=== PATIENT | male | born 1990 | race Caucasian/White ===

== ENCOUNTER 2023-01-01 11:16 | Outpatient (CLI) | payer MEDICAID, SELFPAY ==
--- NOTE | 2023-01-01 11:31 | XR_ITS ---
WS: [id number] EXAMINATION: XR chest 2V* [id number] REASON FOR EXAM: COUGH, TOBACCO DEPENDENCE, WEIGHT LOSS, ABNORMAL COMPARISON: None available. ORDER DATE: 01/01/2023 11:47 AM FINDINGS: The lungs are clear of infiltrate. The cardiac and mediastinal outlines are unremarkable. There ar e no significant pleural effusions . No significant abnormalities are noted in the spine or remainder of the bony thorax. XR/XR chest 2V* [id number] IMPRESSION: NO ACUTE PULMONARY CHANGE.
== END 2023-01-01 11:17 | disposition home or self-care (01) ==
PROVIDERS: PCP Nurse Practitioner Family; Visit Provider Nurse Practitioner Family
DX: R05.9 Cough, unspecified (principal); F17.200 Nicotine dependence, unspecified, uncomplicated; R63.4 Abnormal weight loss
CPT/HCPCS: 71046

== ENCOUNTER 2023-01-27 09:31 | Emergency (ER) | payer MEDICAID, SELFPAY ==
[2023-01-27 09:56] VITALS: BP 134/89; PULSE 76; RESP 16; TEMP 37.1; O2SAT 97; BMI 21.5
--- NOTE | 2023-01-27 10:22 | CTR_ITS ---
PROCEDURE INFORMATION: Exam: CT Abdomen And Pelvis Without Contrast Exam date and time: 01/27/2023 10:49 AM Age: 32 years old Clinical indication: Abdominal pain; Flank; Left; Additional info: Left flank pain TECHNIQUE: Imaging protocol: Computed tomography of the abdomen and pelvis without contrast. Radiation optimization: All CT scans at this facility use at least one of these dose optimization techniques: automated exposure control; mA and/or kV adjustment per patient size (includes targeted exams where dose is matched to clinical indication); or iterative reconstruction. REPORTING DATA: Count of CT and Cardiac NM exams in prior 12 months: This patient has received 0 known CTs and 0 known cardiac nuclear medicine studies in the 12 months prior to the current study. COMPARISON: CR XR chest 2V* [id number] 01/01/2023 11:55 AM RADIATION DOSE METRICS: Total DLP (mGy-cm): 359.15 FINDINGS: Liver: Normal. No mass. Gallbladder and bile ducts: Normal. No calcified stones. No ductal dilation. Pancreas: Normal. No ductal dilation. Spleen: Normal. No splenomegaly. Adrenal glands: Normal. No mass. Kidneys and ureters: Normal. No hydronephrosis. Stomach and bowel: Unremarkable. No obstruction. No mucosal thickening. Appendix: No evidence of appendicitis. Intraperitoneal space: Unremarkable. No free air. No significant fluid collection. Vasculature: Unremarkable. No abdominal aortic aneurysm. Minimal atherosclerotic plaque of the iliac arteries. Lymph nodes: Unremarkable. No enlarged lymph nodes. Urinary bladder: Unremarkable as visualized. Reproductive: Unremarkable as visualized. Bones/joints: Unremarkable. No acute fracture. Soft tissues: Unremarkable. CT/CT kidney stone [id number] IMPRESSION: No acute findings.
--- NOTE | 2023-01-27 10:24 | W.ED.BACK ---
HPI - Back Pain/Injury General: Chief Complaint: Back Pain/Injury Stated Complaint: low back pain Time Seen by Provider: 01/27/23 10:03 History of Present Illness: Patient is a 32-year-old male that comes to the ED with left flank pain. Patient says he was at work this morning when it started. He was standing and not lifting or twisting or doing any other movements. He suddenly felt a sharp pain in left lower back that he rated a 15 out of 10. He said pain was very severe and it made him very nauseous. He states the pain then radiated around his left flank and into the left lower quadrant of his abdomen. Denies any worsening or improving factors. Movement of torso does not cause any worsening pain. In the ED patient says his pain is about a 7 out of 10. Patient says at 8 AM today he took 400 mg of ibuprofen because of headache. Patient denies any recent injuries or trauma to back. Denies any history of kidney stones. Denies any nausea, vomiting, fevers, bowel symptoms, dysuria or hematuria. Associated symptoms: Deny abdominal pain, chills, dysuria, fatigue, fever(s), hematuria, nausea or vomiting Review of Systems Const: Denies: fever(s), chills or fatigue Eyes: Denies: change in vision or eye discomfort ENMT: Denies: throat pain, odynophagia, nasal discharge or nasal congestion Card: Denies: chest pain, palpitations, edema, swelling of feet/ankles, dyspnea on exertion or orthopnea Resp: Denies: dyspnea, productive cough or non-productive cough GI: Denies: abdominal pain, nausea, vomiting, diarrhea, constipation or hematochezia : Reports: flank pain; Denies: difficulty urinating, dysuria or hematuria Musc: Denies: neck pain, back pain or extremity swelling Skin/Breast: Denies: rash or new lesions Neuro: Denies: headache(s), numbness in extremities or weakness in extremities PFS ED PFSH: Medical History (Updated 01/27/23 @ 11:36 by LINDA Tyson) No pertinent family history Surgical History (Updated 01/27/23 @ 10:32 by LINDA Tyson) No pertinent past surgical history Physical Exam Const: COMMON NORMALS: patient oriented x3, healthy appearing and alert HENMT: COMMON NORMALS: normocephalic HEAD & SCALP: normocephalic MOUTH: Normal oral and palatal mucosa present THROAT: posterior oropharynx normal and uvula midline Neck/C-Spine: COMMON NORMALS: supple GENERAL: Yes normal visual inspection Resp: COMMON NORMALS: normal respiratory effort, No retractions, No use of accessory muscles and clear to auscultation bilaterally AUSCULTATION: clear to auscultation bilaterally Cardio: COMMON NORMALS: regular rate, regular rhythm, S1 normal heart sound present, S2 normal heart sound present, No gallops present (Cardio), No clicks present (Cardio), No murmurs present (Cardio) and Peripheral pulses 2+ throughout RATE: regular rate RHYTHM: regular rhythm HEART SOUNDS: S1 normal heart sound present and S2 normal heart sound present PERIPHERAL PULSES: Peripheral pulses 2+ throughout GI: COMMON NORMALS: Normal to inspection, nondistended, normoactive bowel sounds present, Soft to palpation, non-tender and no masses PALPATION: Yes Soft to palpation : BLADDER/KIDNEY EXAM: Yes CVA tenderness on the left Back/Pelvis: GENERAL BACK: Yes CVA tenderness Extremity: COMMON NORMALS: normal to inspection Neuro: COMMON NORMALS: patient oriented x3 SENSORIUM/ORIENTATION: Yes alert GAIT: Yes Normal gait present Skin: GENERAL SKIN EXAM: dry skin Course Vital Signs: Vital signs: Vital Signs Temperature 98.7 F 01/27/23 09:56 Pulse Rate 78 01/27/23 11:46 Respiratory Rate 18 01/27/23 11:46 Blood Pressure 119/69 01/27/23 11:46 Pulse Oximetry 98 01/27/23 11:46 Oxygen Delivery Me thod Room Air 01/27/23 09:56 MDM - Back Pain/Injury Medical Decision Making Patient is a 32-year-old male that comes to the ED with left flank pain. Patient says he was at work this morning when it started. He was standing and not lifting or twisting or doing any other movements. He suddenly felt a sharp pain in left lower back that he rated a 15 out of 10. He said pain was very severe and it made him very nauseous. He states the pain then radiated around his left flank and into the left lower quadrant of his abdomen. Denies any worsening or improving factors. Movement of torso does not cause any worsening pain. In the ED patient says his pain is about a 7 out of 10. Patient says at 8 AM today he took 400 mg of ibuprofen because of headache. Patient denies any recent injuries or trauma to back. Denies any history of kidney stones. Denies any nausea, vomiting, fevers, bowel symptoms, dysuria or hematuria. Vital stable. Patient appears nontoxic in no acute distress or pain. Patient has some left CVA tenderness but rest of exam is benign. CBC and CMP are unremarkable. UA was unremarkable. CT abdomen pelvis showed no acute findings and no kidney stone seen. Patient was diagnosed with left flank pain and was stable for discharge home. He was sent home with a prescription for naproxen and methocarbamol. Follow-up with PCP in the next week for reevaluation. Return to ED precautions given. Patient understood and agreed with plan. Labs I reviewed the patient's lab results. 01/27/23 10:33 01/27/23 11:22 Radiology Impressions Abdomen/Pelvis CT 01/27/23 10:22 IMPRESSION: No acute findings. Laboratory Results WBC 5.6 10^3/uL (4.0-10.0) 01/27/23 10:33 RBC 4.83 10^6/uL (4.1-5.3) 01/27/23 10:33 Hgb 15.5 g/dL (11.7-16.6) 01/27/23 10:33 Hct 45.4 % (42.0-52.0) 01/27/23 10:33 MCV 94.0 fl (80-94) 01/27/23 10:33 MCH 32.1 pg (28.0-34.0) 01/27/23 10:33 MCHC 34.1 g/dL (30.0-36.0) 01/27/23 10:33 RDW 12.5 % (12.1-15.1) 01/27/23 10:33 Plt Count 164 10^3/cmm (130-400) 01/27/23 10:33 MPV 11.1 fL (7.4-10.4) H 01/27/23 10:33 Neut % (Auto) 57.0 % 01/27/23 10:33 Lymph % (Auto) 30.9 % 01/27/23 10:33 [place] % (Auto) 7.8 % 01/27/23 10:33 Eos % (Auto) 3.6 % 01/27/23 10:33 Baso % (Auto) 0.7 % 01/27/23 10:33 Neut # (Auto) 3.21 10^3/uL (1.8-7.7) 01/27/23 10:33 Lymph # (Auto) 1.7 10^3/uL (0.8-4.8) 01/27/23 10:33 [place] # (Auto) 0.4 10^3/uL (0.2-0.9) 01/27/23 10:33 Eos # (Auto) 0.2 10^3/uL (0.0-0.8) 01/27/23 10:33 Baso # (Auto) 0.0 10^3/uL (0.0-0.1) 01/27/23 10:33 Nucleated RBC % (auto) 0 % 01/27/23 10:33 Nucleated RBCs # 0.0 /100WBC 01/27/23 10:33 Sodium 140 mmol/L (136-145) 01/27/23 11:22 Potassium 4.1 mmol/L (3.5-5.1) 01/27/23 11:22 Chloride 105 mmol/L (98-107) 01/27/23 11:22 Carbon Dioxide 26 mmol/L (22-29) 01/27/23 11:22 Anion Gap 13.1 (5-19) 01/27/23 11:22 BUN 11 mg/dL (6-20) 01/27/23 11:22 Creatinine 0.7 mg/dL (0.7-1.2) 01/27/23 11:22 GFR Calculation 130.7 mL/min (90-130) H 01/27/23 11:22 Glucose 78 mg/dL (65-115) 01/27/23 11:22 Calculated Osmolality 288 mOsm/kg (285-295) 01/27/23 11:22 Calcium 8.7 mg/dL (8.5-10.5) 01/27/23 11:22 Total Bilirubin 0.3 mg/dL (0.15-1.2) 01/27/23 11:22 AST 20 U/L (0-40) 01/27/23 11:22 ALT 30 U/L (0-41) 01/27/23 11:22 Alkaline Phosphatase 82 U/L (40-130) 01/27/23 11:22 Total Protein 6.2 g/dL (6.6-8.7) L 01/27/23 11:22 Albumin 4.1 g/dL (3.5-5.2) 01/27/23 11:22 Globulin 2.1 g/dL (1.3-4.6) 01/27/23 11:22 Urine Color Dark yellow (Yellow) 01/27/23 10:38 Urine Appearance Clear (CLEAR) 01/27/23 10:38 Urine pH 7 (5-7) 01/27/23 10:38 Ur Specific [place] 1.010 (1.005-1.030) 01/27/23 10:38 Urine Protein Neg (Negative) 01/27/23 10:38 Urine Glucose (UA) Norm (Normal) 01/27/23 10:38 Urine Ketones Negative (Negative) 01/27/23 10:38 Urine Blood Neg (Negative) 01/27/23 10:38 Urine Nitrate Negative (Negative) 01/27/23 10:38 Urine Bilirubin Neg (Negative) 01/27/23 10:38 Urine Urobilinogen Norm mg/dL (Negative) 01/27/23 10:38 Ur Leukocyte Esterase Negative (Negative) 01/27/23 10:38 Discharge Plan Discharge Patient Disposition: Home Clinical Impression: Left flank pain Condition: Stable Prescriptions: New Naprosyn 500 mg tablet 500 mg PO BID PRN (Reason: pain) Qty: 20 0RF methocarbamol 750 mg tablet 750 mg PO Q8H PRN (Reason: Muscle spasms and pain) Qty: 20 0RF No Action ibuprofen 200 mg Tablet 400 mg PO Q6H PRN (Reason: Pain) Discharge Orders: Discharge ED (Routine); Ordered 01/27/23 Ordered By: Mike Choudhary Referrals: Cecilia Saunders FNP [Primary Care Provider] - Discharge Diet: Regular Discharge Activity: Increase activity as tolerated Patient Instructions: Flank Pain (ED) Activity Restrictions/Additional Instructions: Follow-up with medical provider as directed in the next 5 to 7 days for reevaluation. Take medications as prescribed. Return to the ER or your medical provider if condition worsens. Please read and understand discharge instructions. Thank you for choosing [facility] for your healthcare needs today. Please realize this is an emergency room and that we are providing you with a medical screening exam and this may not be complete and all inclusive of all the testing and or work up that you may need to determine your ailment or severity of your illness. It is very important that you follow up as instructed or that you return to the Emergency Department should you have concerns or if your condition changes or worsens in any way. Coding Level of Care Code ED Child Specialist for Sarah Beth Prince
[2023-01-27] MEDS: sodium chloride 0.9% 1,000 ML 999 ML IV (10:32)
[2023-01-27 10:46] LABS: Basophils % 0.7 %; Eosinophils # 0.2 10^3/uL (0.0-0.8); Eosinophils % 3.6 %; Hematocrit 45.4 % (42.0-52.0); Hemoglobin 15.5 g/dL (11.7-16.6); Lymphocytes # 1.7 10^3/uL (0.8-4.8); Lymphocytes % 30.9 %; Mean Corpuscular HGB Conc 34.1 g/dL (30.0-36.0); Mean Corpuscular Hemoglobin 32.1 pg (28.0-34.0); Mean Platelet Volume 11.1 fL (7.4-10.4); Monocytes # 0.4 10^3/uL (0.2-0.9); Monocytes % 7.8 %; Neutrophils # 3.21 10^3/uL (1.8-7.7); Nucleated Red Blood Cells % 0 %; Platelet Count 164 10^3/cmm (130-400); Red Blood Count 4.83 10^6/uL (4.1-5.3); Red Cell Distribution Width 12.5 % (12.1-15.1); White Blood Count 5.6 10^3/uL (4.0-10.0)
[2023-01-27 10:47] LABS: Add Urine Microscopic? NO; Charge for UA Resulting for Rev
[2023-01-27 10:55] LABS: Bilirubin Urine Neg (Negative); Blood Urine Neg (Negative); Glucose Urine UA Norm (Normal); Ketones Urine Negative (Negative); Leukocyte Esterase Urine Negative (Negative); Nitrate Urine Negative (Negative); Protein Urine Neg (Negative); Urine Appearance Clear (CLEAR); Urine Color Dark Yellow (Yellow); Urobilinogen Urine Norm (Negative); pH Urine 7 (5-7)
[2023-01-27] MEDS: ketorolac 30 mg/mL INJ IVP (11:38)
[2023-01-27 11:46] VITALS: BP 119/69; PULSE 78; RESP 18; O2SAT 98
[2023-01-27 12:02] LABS: Alanine Aminotransferase 30 U/L (0-41); Albumin Level 4.1 g/dL (3.5-5.2); Alkaline Phosphatase 82 U/L (40-130); Anion Gap 13.1 (5-19); Aspartate Amino Transferase 20 U/L (0-40); Blood Urea Nitrogen 11 mg/dL (6-20); Calcium 8.7 mg/dL (8.5-10.5); Carbon Dioxide 26 mmol/L (22-29); Chloride 105 mmol/L (98-107); Creatinine Clr Calc Pharmacy 152.1763; Globulin 2.1 g/dL (1.3-4.6); Glomerular Filtration Rate 130.7 mL/min (90-130); Glucose 78 mg/dL (65-115); Osmolality Calculated 288 mOsm/kg (285-295); Potassium 4.1 mmol/L (3.5-5.1); Sodium 140 mmol/L (136-145); Total Bilirubin 0.3 mg/dL (0.15-1.2); Total Protein 6.2 g/dL (6.6-8.7)
== END 2023-01-27 11:48 | disposition home or self-care (01) ==
PROVIDERS: Emergency Provider Physician Assistant; PCP Nurse Practitioner Family
DX: R10.9 Unspecified abdominal pain (principal)
CPT/HCPCS: 74176; 80053; 81003; 85025; 96374; 99284; J1885; J7030

== ENCOUNTER → 2023-05-01 10:00 | Outpatient (BNVA) | payer MEDICAID, SELFPAY | PROVIDERS: PCP Nurse Practitioner Family; Visit Provider Internal Medicine Rheumatology | DX: Z79.899 Other long term (current) drug therapy (principal); M19.90 Unspecified osteoarthritis, unspecified site; R07.9 Chest pain, unspecified; R76.8 Other specified abnormal immunological findings in serum; R41.89 Other symptoms and signs involving cognitive functions and awareness; R51.9 Headache, unspecified; G89.29 Other chronic pain; Z11.59 Encounter for screening for other viral diseases; Z11.1 Encounter for screening for respiratory tuberculosis | CPT/HCPCS: 36415; 71046; 73130; 73630; 80076; 82085; 82306; 82550; 82565; 83520; 85025; 85651; 86140; 86200; 86225; 86235; 86480; 86704; 86803; 87340 ==